=== PATIENT | male | born 1985 | race Caucasian/White ===

== ENCOUNTER → 2017-10-30 | Outpatient (CLI) | payer BC | END | disposition home or self-care (01) | LOC: PETCFH 10:34 | PROVIDERS: ATTEND Internal Medicine Gastroenterology | DX: R10.13 Epigastric pain (principal); R11.2 Nausea with vomiting, unspecified; K52.9 Noninfective gastroenteritis and colitis, unspecified; K62.5 Hemorrhage of anus and rectum; R63.4 Abnormal weight loss; R00.1 Bradycardia, unspecified; L81.8 Other specified disorders of pigmentation; R53.83 Other fatigue; R07.9 Chest pain, unspecified; Z68.25 Body mass index [BMI] 25.0-25.9, adult | CPT/HCPCS: 78264; A9541 ==